=== PATIENT | female | born 1980 | race African-American/Black ===

== ENCOUNTER 2020-03-01 05:23 | Emergency (ER) | payer BC ==
[~2020-03-01] VITALS: Ht 172.7 cm; Wt 115.7 kg
[2020-03-01 05:32] VITALS: BP_SYST 142
[2020-03-01] MEDS ORDERED: KETOROLAC TROMETHAMINE 30 MG VIAL IM ONE (06:30)
[2020-03-01] MEDS ORDERED: HYDROcodone/ACETAMIN 5-325 MG TAB (NORCO/ VICODIN) PO ONE (06:45)
[2020-03-01 07:19] VITALS: BP_SYST 142
== END 2020-03-01 07:19 | disposition home or self-care (01) ==
LOC: SED 05:23
DX: M54.30 Sciatica, unspecified side (principal)
CPT/HCPCS: 81002; 81025; 96372; 99283; J1885